=== PATIENT | female | born 1995 ===

== ENCOUNTER 2019-01-27 01:57 | Observation (INO) | payer SELFPAY ==
[~2019-01-27] VITALS: Ht 157.5 cm; Wt 50.3 kg
[2019-01-28 06:48] VITALS: BP 105/71
== END 2019-01-28 13:17 | disposition home or self-care (01) ==
LOC: ED 04:12 → INTOOBSV 04:13 → EDIP 04:13 → UNDOADMOB 04:13 → EDIP 05:32 → 4EST 05:37 → UNDODISOB 01-28 13:17
PROVIDERS: ADMIT Family Medicine; ATTEND Internal Medicine
DX: T43.592A Poisoning by other antipsychotics and neuroleptics, intentional self-harm, initial encounter (principal); R40.0 Somnolence; F10.120 Alcohol abuse with intoxication, uncomplicated; F41.9 Anxiety disorder, unspecified; F17.210 Nicotine dependence, cigarettes, uncomplicated; Y92.9 Unspecified place or not applicable
CPT/HCPCS: 36415; 80048; 80053; 80076; 80307; 82040; 84703; 85025; 93005; 96360; 96361; 99284; G0378; J7030; J7070; J7120; 99285